=== PATIENT | female | born 1930 | race African-American/Black ===

== ENCOUNTER 2017-06-29 03:06 | Inpatient (IN) | payer OTHER, MEDICAID ==
[2017-06-29] VITALS (47 sets, daily range): BP systolic 93–165; BP diastolic 40–99
[~2017-06-29] VITALS: Ht 167.6 cm; Wt 106.6 kg
[~2017-06-29 03:06] MED LIST: CLON0.1T PO; ETOMIDATE 2MG/ML 10ML VIAL IV ONE; HYDR-4134 PO; LISI40TA4 PO; SUCCINYLCHOLINE CHLORIDE 200MG/10ML VIAL IV ONE
[2017-06-29] MEDS ORDERED: SODIUM CHLORIDE 0.9% 1,000 ML IV ONE (03:17)
[2017-06-29] MEDS ORDERED: SUCCINYLCHOLINE CHLORIDE 200MG/10ML VIAL IV ONE (03:30)
[2017-06-29] MEDS ORDERED: ETOMIDATE 2MG/ML 10ML VIAL IV ONE (03:30)
[2017-06-29] MEDS ORDERED: PROPOFOL 200MG/20ML VIAL IV ONE (03:30)
[2017-06-29] MEDS ORDERED: PROPOFOL 10MG/ML 100ML 100 ML IV ONE ×3 (03:30→09:18)
[2017-06-29] MEDS ORDERED: VANCOMYCIN 1 G PREMIX 200 ML IV ONE (03:30)
[2017-06-29] MEDS ORDERED: AZITHROMYCIN 500 MG in DEXT 5% WATER 250 ML IV ONE (03:30)
[2017-06-29] MEDS ORDERED: CEFTRIAXONE 1 G PREMIX 50 ML IV ONE (03:30)
[2017-06-29] MEDS ORDERED: ATROPINE SULFATE 1MG/10ML SYR ONE (03:40)
[2017-06-29 04:18] LABS: CLARITY URINE TURBID (CLEAR); COLOR URINE ORANGE (YELLOW); KETONES URINE NEGATIVE (NEGATIVE); LEUKOCYTE ESTERASE URINE 3+ (NEGATIVE); NITRITE URINE POSITIVE (NEGATIVE); OCCULT BLOOD URINE 3+ (NEGATIVE); PH URINE 5.5 (4.5-8.0); PROTEIN URINE 3+ (NEGATIVE); SPECIFIC GRAVITY URINE 1.017 (1.005-1.030)
[2017-06-29 04:46] LABS: BASOPHILS % 0.4 % (0.0-2.0); EOSINOPHILS % 0.5 % (0.0-5.0); HEMOGLOBIN. 12.5 g/dL (12.0-16.0); LYMPHOCYTES % 8.9 % (20.0-50.0); MEAN CORPUSCULAR HEMOGLOBIN 30.9 pg (28.0-32.0); MEAN CORPUSCULAR VOLUME 98.6 fL (81.0-99.0); MEAN PLATELET VOLUME 9.6 fl (7.4-10.4); NEUTROPHILS % 82.2 % (40.0-76.0); PLATELET 182 x1000/uL (130-400); RED BLOOD CELL COUNT 4.06 mill/uL (4.2-5.4); RED CELL DISTRIBUTION WIDTH 14.7 % (11.6-14.6)
[2017-06-29] MEDS ORDERED: SODIUM CHLORIDE 0.9% 1000ML BAG (SEPSIS BOLUS) IV NR (05:00)
[2017-06-29 05:03] LABS: CHLORIDE 94 mEq/L (98-107); ETHANOL BLOOD < 10 mg/dL; TROPONIN I 0.13 ng/mL (0.00-0.04)
[2017-06-29 05:15] LABS: INR 1.2; PROTHROMBIN TIME 12.5 sec (9.4-11.6)
[2017-06-29 05:16] LABS: BG BASE EXCESS 13.3 mmol/L (-2.0-2.0); BG CARBOXYHEMOGLOBIN 0.5 % (0.5-1.5); BG DEOXYHEMOGLOBIN 0.3 % (0.0-5.0); BG FRACTION INSPIRED OXYGEN 100; BG HCO3 ACT 39.1 mmol/L (22.0-26.0); BG METHEMOGLOBIN 0.3 % (0.0-1.5); BG OXYGEN SATURATION 99.7 % (92.0-98.5); BG OXYHEMOGLOBIN 98.9 % (94.0-97.0); BG PCO2 55.9 mmHg (35.0-45.0); BG PH 7.463 (7.350-7.450); BG PO2 440.9 mmHg (75.0-100.0); BG SAMPLE SITE RIGHT RADIAL; BG TIDAL VOLUME(mL) 550 mL; BG TOTAL HEMOGLOBIN 11.2 g/dL (12.0-18.0); BG VENT MODE VENT - A/C; BG VENT RATE 14 set
[2017-06-29] MEDS ORDERED: ASPIRIN 300MG SUPP PR NR (05:30)
[2017-06-29 06:12] LABS: *BARBITURATES SCREEN URINE NEGATIVE (NEGATIVE); *BENZODIAZEPINES SCREEN URINE NEGATIVE (NEGATIVE); *COCAINE SCREEN URINE NEGATIVE (NEGATIVE); CANNABINOID URINE SCREEN NEGATIVE (NEGATIVE); METHADONE URINE SCREEN NEGATIVE (NEGATIVE); OPIATES URINE SCREEN NEGATIVE (NEGATIVE); PHENCYCLIDINE URINE SCREEN NEGATIVE (NEGATIVE)
[2017-06-29 06:19] LABS: *AMPHETAMINES SCREEN URINE NEGATIVE (NEGATIVE)
[2017-06-29] MEDS ORDERED: ACETAMINOPHEN 650MG SUPP PR ONE (08:15)
[2017-06-29] MEDS ORDERED: CLONIDINE 0.1MG TABLET PO PRN (10:15)
[2017-06-29] MEDS ORDERED: ACETAMINOPHEN 325MG TABLET PO PRN (10:15)
[2017-06-29] MEDS ORDERED: IPRATROPIUM/ALBUTEROL 0.5-3(2.5)MG/3ML NEB HHN PRN (10:15)
[2017-06-29] MEDS ORDERED: DEXTROSE 50% WATER 50ML SYRINGE IV PRN (11:15)
[2017-06-29] MEDS: LISINOPRIL 40MG TABLET PO SCH (11:23)
[2017-06-29] MEDS: FUROSEMIDE 40MG/4ML VIAL IVP SCH ×2 (11:23→17:35)
[2017-06-29] MEDS: ENOXAPARIN 30MG/0.3ML SYR SUBCUT SCH ×2 (11:24→22:24)
[2017-06-29] MEDS: BLOOD SUGAR DIAGNOSTIC STRIP TEST SCH ×3 (11:30→21:00)
[2017-06-29] MEDS: LEVOFLOXACIN 750MG PREMIX 150 ML IV SCH (11:30)
[2017-06-29] MEDS: MORPHINE SULFATE 4 MG/ML CPJ (NOT FOR IM USE) IV PRN (11:43)
[2017-06-29] MEDS: INSULIN LISPRO 100 UNITS/ML SUBCUT SCH ×3 (12:00→21:00)
[2017-06-29 12:12] LABS: BG BASE EXCESS 13.2 mmol/L (-2.0-2.0); BG CARBOXYHEMOGLOBIN 0.4 % (0.5-1.5); BG DEOXYHEMOGLOBIN 0.9 % (0.0-5.0); BG HCO3 ACT 35.7 mmol/L (22.0-26.0); BG METHEMOGLOBIN 0.3 % (0.0-1.5); BG OXYGEN SATURATION 99.1 % (92.0-98.5); BG OXYHEMOGLOBIN 98.4 % (94.0-97.0); BG PCO2 36.9 mmHg (35.0-45.0); BG PH 7.603 (7.350-7.450); BG PO2 139.9 mmHg (75.0-100.0); BG SAMPLE SITE RIGHT BRACHIAL; BG TIDAL VOLUME(mL) 550 mL; BG TOTAL HEMOGLOBIN 11.7 g/dL (12.0-18.0); BG VENT MODE VENT - A/C; BG VENT RATE 14 set
[2017-06-29] MEDS: BUDESONIDE 0.5MG/2ML NEB HHN SCH ×2 (12:45→20:48)
[2017-06-29] MEDS: IPRATROPIUM/ALBUTEROL 0.5-3(2.5)MG/3ML NEB HHN SCH ×3 (12:45→20:50)
[2017-06-29] MEDS: HYDRALAZINE HCL 25MG TABLET PO SCH ×2 (13:00→17:36)
[2017-06-29] MEDS: PROPOFOL 10MG/ML 100ML 100 ML IV PRN ×2 (13:32→19:05)
[2017-06-29] MEDS ORDERED: METHYLPREDNISOLONE SOD SUCC 125 MG/2 ML VIAL IV SCH (14:00)
[2017-06-29] MEDS: METHYLPREDNISOLONE SOD SUCC 40 MG/ML VIAL IV SCH (22:24)
[2017-06-30] VITALS (93 sets, daily range): BP systolic 92–193; BP diastolic 40–125
[2017-06-30] MEDS: IPRATROPIUM/ALBUTEROL 0.5-3(2.5)MG/3ML NEB HHN SCH ×7 (00:32→23:50)
[2017-06-30 05:32] LABS: CHLORIDE 98 mEq/L (98-107)
[2017-06-30] MEDS: METHYLPREDNISOLONE SOD SUCC 40 MG/ML VIAL IV SCH ×3 (06:36→21:27)
[2017-06-30] MEDS: INSULIN LISPRO 100 UNITS/ML SUBCUT SCH ×4 (06:42→21:27)
[2017-06-30] MEDS: BLOOD SUGAR DIAGNOSTIC STRIP TEST SCH ×4 (06:42→21:27)
[2017-06-30] MEDS: BUDESONIDE 0.5MG/2ML NEB HHN SCH ×2 (07:56→20:21)
[2017-06-30 08:10] LABS: BG BASE EXCESS 12.8 mmol/L (-2.0-2.0); BG CARBOXYHEMOGLOBIN 0.1 % (0.5-1.5); BG DEOXYHEMOGLOBIN 1.6 % (0.0-5.0); BG FRACTION INSPIRED OXYGEN 45; BG HCO3 ACT 37.7 mmol/L (22.0-26.0); BG METHEMOGLOBIN 0.2 % (0.0-1.5); BG OXYGEN SATURATION 98.4 % (92.0-98.5); BG OXYHEMOGLOBIN 98.1 % (94.0-97.0); BG PCO2 49.8 mmHg (35.0-45.0); BG PH 7.497 (7.350-7.450); BG PO2 120.9 mmHg (75.0-100.0); BG SAMPLE SITE RIGHT RADIAL; BG TIDAL VOLUME(mL) 550 mL; BG TOTAL HEMOGLOBIN 11.7 g/dL (12.0-18.0); BG VENT MODE VENT - A/C; BG VENT RATE 10 set
[2017-06-30 08:39] LABS: HEMATOCRIT. 34.2 % (36.0-48.0); HEMOGLOBIN. 11.1 g/dL (12.0-16.0); MEAN CORPUSCULAR HEMOGLOBIN 30.7 pg (28.0-32.0); MEAN CORPUSCULAR VOLUME 94.2 fL (81.0-99.0); MEAN PLATELET VOLUME 9.6 fl (7.4-10.4); PLATELET 199 x1000/uL (130-400); RED BLOOD CELL COUNT 3.63 mill/uL (4.2-5.4); RED CELL DISTRIBUTION WIDTH 14.3 % (11.6-14.6)
[2017-06-30] MEDS: HYDRALAZINE HCL 100MG TABLET PO SCH ×3 (08:43→21:27)
[2017-06-30] MEDS: FUROSEMIDE 40MG/4ML VIAL IVP SCH ×2 (09:09→18:29)
[2017-06-30] MEDS: ENOXAPARIN 30MG/0.3ML SYR SUBCUT SCH ×2 (09:09→21:09)
[2017-06-30] MEDS: LISINOPRIL 40MG TABLET PO SCH (09:10)
[2017-06-30] MEDS: PROPOFOL 10MG/ML 100ML 100 ML IV PRN ×3 (09:11→20:24)
[2017-06-30 09:33] LABS: PLATELET ESTIMATE NORMAL
[2017-06-30] MEDS ORDERED: LIDOCAINE HCL 1% 20ML VIAL (Pyxis) INJ ONE (09:59)
[2017-06-30] MEDS: LEVOFLOXACIN 750MG PREMIX 150 ML IV SCH (11:29)
[2017-06-30] MEDS ORDERED: BISACODYL 10MG SUPP PR PRN (11:30)
[2017-06-30] MEDS: DOCUSATE SODIUM SUGAR FREE 100MG/10ML UDC NG SCH (11:49)
[2017-06-30] MEDS: PANTOPRAZOLE SODIUM 40 MG/VIAL IV SCH (11:49)
[2017-07-01] VITALS (49 sets, daily range): BP systolic 102–163; BP diastolic 44–95
[2017-07-01] MEDS: PROPOFOL 10MG/ML 100ML 100 ML IV PRN (01:39)
[2017-07-01] MEDS: IPRATROPIUM/ALBUTEROL 0.5-3(2.5)MG/3ML NEB HHN SCH ×5 (04:07→20:08)
[2017-07-01] MEDS: HYDRALAZINE HCL 100MG TABLET PO SCH ×2 (05:43→13:23)
[2017-07-01] MEDS: METHYLPREDNISOLONE SOD SUCC 40 MG/ML VIAL IV SCH ×2 (05:43→13:22)
[2017-07-01] MEDS: INSULIN LISPRO 100 UNITS/ML SUBCUT SCH ×4 (05:44→21:00)
[2017-07-01] MEDS: BLOOD SUGAR DIAGNOSTIC STRIP TEST SCH ×4 (05:44→21:00)
[2017-07-01 05:54] LABS: HEMATOCRIT. 32.7 % (36.0-48.0); HEMOGLOBIN. 10.7 g/dL (12.0-16.0); MEAN CORPUSCULAR HEMOGLOBIN 30.8 pg (28.0-32.0); MEAN CORPUSCULAR VOLUME 94.1 fL (81.0-99.0); MEAN PLATELET VOLUME 9.8 fl (7.4-10.4); PLATELET 201 x1000/uL (130-400); RED BLOOD CELL COUNT 3.47 mill/uL (4.2-5.4); RED CELL DISTRIBUTION WIDTH 14.1 % (11.6-14.6)
[2017-07-01] MEDS: BUDESONIDE 0.5MG/2ML NEB HHN SCH ×2 (07:55→20:08)
[2017-07-01 08:09] LABS: BG BASE EXCESS 11.8 mmol/L (-2.0-2.0); BG CARBOXYHEMOGLOBIN 0.3 % (0.5-1.5); BG DEOXYHEMOGLOBIN 1.5 % (0.0-5.0); BG FRACTION INSPIRED OXYGEN 40; BG HCO3 ACT 37.6 mmol/L (22.0-26.0); BG METHEMOGLOBIN 0.1 % (0.0-1.5); BG OXYGEN SATURATION 98.5 % (92.0-98.5); BG OXYHEMOGLOBIN 98.1 % (94.0-97.0); BG PCO2 55.2 mmHg (35.0-45.0); BG PH 7.451 (7.350-7.450); BG PO2 124.4 mmHg (75.0-100.0); BG SAMPLE SITE RIGHT BRACHIAL; BG TIDAL VOLUME(mL) 550 mL; BG TOTAL HEMOGLOBIN 11.4 g/dL (12.0-18.0); BG VENT MODE VENT - A/C; BG VENT RATE 10 set
[2017-07-01] MEDS: LISINOPRIL 40MG TABLET PO SCH (08:43)
[2017-07-01] MEDS: DOCUSATE SODIUM SUGAR FREE 100MG/10ML UDC NG SCH (08:43)
[2017-07-01] MEDS: ENOXAPARIN 30MG/0.3ML SYR SUBCUT SCH ×2 (08:44→21:00)
[2017-07-01] MEDS: PANTOPRAZOLE SODIUM 40 MG/VIAL IV SCH (08:44)
[2017-07-01] MEDS: FUROSEMIDE 40MG/4ML VIAL IVP SCH (08:44)
[2017-07-01 09:57] LABS: NUCLEATED RED BLOOD CELLS 1 /100 WBC
[2017-07-01 09:58] LABS: PLATELET ESTIMATE NORMAL
[2017-07-01] MEDS ORDERED: POTASSIUM CHLORIDE INJ 40 MEQ in SODIUM CHLORIDE 0.9% 250 ML IV NR (10:00)
[2017-07-01] MEDS: LEVOFLOXACIN 750MG PREMIX 150 ML IV SCH (11:50)
[2017-07-01] MEDS: MAGNESIUM/ALUMINUM HYDROXIDE/SIMETHICONE 30ML UDC PO PRN ×2 (13:39→19:48)
[2017-07-01] MEDS ORDERED: NA PHOS,M-B/NA PHOS,DI-BA ENEMA 118ML PR PRN (14:45)
[2017-07-01] MEDS ORDERED: MAGNESIUM 2 G PREMIX 50 ML IV NR (15:00)
[2017-07-01] MEDS: MORPHINE SULFATE 4 MG/ML CPJ (NOT FOR IM USE) IV PRN (16:26)
[2017-07-02] MEDS ORDERED: FUROSEMIDE 40MG/4ML VIAL IVP SCH (09:00)
[2017-07-03] MEDS ORDERED: LEVOFLOXACIN 750MG PREMIX 150 ML IV SCH (11:00)
== END 2017-07-01 21:50 | disposition short-term general hospital (02) | DRG 871 ==
LOC: ER 03:16 → EDBEDREQSVC 03:28 → EDBEDREQ 03:46 → MICUNO 04:21 → EDBEDREQ 04:26
PROVIDERS: ADMIT Internal Medicine Nephrology; ATTEND Internal Medicine Nephrology
PROC: 0BH17EZ Insertion of Endotracheal Airway into Trachea, Via Natural or Artificial Opening (ICD-10-PCS; principal; 2017-06-29)
PROC: 5A1945Z Respiratory Ventilation, 24-96 Consecutive Hours (ICD-10-PCS; 2017-06-29)
PROC: 02HV33Z Insertion of Infusion Device into Superior Vena Cava, Percutaneous Approach (ICD-10-PCS; 2017-06-30)
PROC: B548ZZA Ultrasonography of Superior Vena Cava, Guidance (ICD-10-PCS; 2017-06-30)
DX: A41.9 Sepsis, unspecified organism (principal); J96.00 Acute respiratory failure, unspecified whether with hypoxia or hypercapnia; J69.0 Pneumonitis due to inhalation of food and vomit; G92 Toxic encephalopathy; I50.21 Acute systolic (congestive) heart failure; E44.0 Moderate protein-calorie malnutrition; R16.0 Hepatomegaly, not elsewhere classified; J44.1 Chronic obstructive pulmonary disease with (acute) exacerbation; N39.0 Urinary tract infection, site not specified; I42.9 Cardiomyopathy, unspecified; J98.11 Atelectasis; K80.20 Calculus of gallbladder without cholecystitis without obstruction; I11.0 Hypertensive heart disease with heart failure; B96.89 Other specified bacterial agents as the cause of diseases classified elsewhere; E78.5 Hyperlipidemia, unspecified; Z88.6 Allergy status to analgesic agent; Z68.37 Body mass index [BMI] 37.0-37.9, adult
CPT/HCPCS: 31500; 36415; 36569; 36600; 70450; 71045; 74176; 76937; 80048; 80053; 80305; 81001; 82375; 82805; 82962; 83036; 83605; 83690; 83735; 83880; 84478; 84484; 85025; 85610; 87040; 87077; 87086; 87186; 87804; 93005; 93306; 93970; 94002; 94640; 96374; 99291; A6261; C1725; C9113; G0482; J0330; J0456; J0461; J0696; J1650; J1815; J1940; J1956; J2270; J2704; J2920; J2930; J3370; J3475; J3480; J3490; J7030; J7040; J7050; J7060; J7620; J7626; A4315

== ENCOUNTER 2018-06-22 01:31 | Inpatient (IN) | payer OTHER, MEDICAID ==
[2018-06-22] VITALS (7 sets, daily range): BP systolic 105–167; BP diastolic 45–69
[~2018-06-22] VITALS: Ht 162.6 cm; Wt 98.0 kg
[~2018-06-22 01:31] MED LIST changes: -ETOMIDATE 2MG/ML 10ML VIAL IV ONE; -SUCCINYLCHOLINE CHLORIDE 200MG/10ML VIAL IV ONE
[2018-06-22] MEDS ORDERED: FUROSEMIDE 40MG/4ML VIAL IV ONE (03:15)
[2018-06-22] MEDS ORDERED: NITROGLYCERIN OINT 1GM/INCH UDPKT TD ONE (03:15)
[2018-06-22 04:29] LABS: HEMOGLOBIN. 11.9 g/dL (12.0-16.0); MEAN CORPUSCULAR HEMOGLOBIN 31.9 pg (28.0-32.0); MEAN CORPUSCULAR VOLUME 99.1 fL (81.0-99.0); RED BLOOD CELL COUNT 3.74 mill/uL (4.2-5.4); RED CELL DISTRIBUTION WIDTH 13.3 % (11.6-14.6)
[2018-06-22 04:32] LABS: BG BASE EXCESS 7.4 mmol/L (-2.0-2.0); BG CARBOXYHEMOGLOBIN 1.8 % (0.5-1.5); BG DEOXYHEMOGLOBIN 6.1 % (0.0-5.0); BG FRACTION INSPIRED OXYGEN 36; BG HCO3 ACT 34.5 mmol/L (22.0-26.0); BG METHEMOGLOBIN 0.3 % (0.0-1.5); BG OXYGEN SATURATION 93.8 % (92.0-98.5); BG OXYHEMOGLOBIN 91.8 % (94.0-97.0); BG PCO2 60.8 mmHg (35.0-45.0); BG PH 7.372 (7.350-7.450); BG PO2 70.7 mmHg (75.0-100.0); BG SAMPLE SITE RIGHT RADIAL; BG TOTAL HEMOGLOBIN 12.4 g/dL (12.0-18.0); BG VENT MODE NASAL CANNULA
[2018-06-22 04:44] LABS: CHLORIDE 98 mEq/L (98-107)
[2018-06-22 07:25] LABS: PLATELET ESTIMATE NORMAL
[2018-06-22 07:26] LABS: MEAN PLATELET VOLUME 9.6 fl (7.4-10.4); PLATELET 182 x1000/uL (130-400)
[2018-06-22] MEDS ORDERED: HYDROCODONE/ACETAMINOPHEN 10/325MG TABLET PO PRN (13:00)
[2018-06-22] MEDS ORDERED: CLONIDINE 0.1MG TABLET PO PRN (13:00)
[2018-06-22] MEDS ORDERED: HYDRALAZINE 20MG/ML VIAL IV PRN (13:00)
[2018-06-22] MEDS ORDERED: IPRATROPIUM/ALBUTEROL 0.5-3(2.5)MG/3ML NEB INH PRN (13:00)
[2018-06-22] MEDS ORDERED: ONDANSETRON HCL 4MG/2ML INJ IV PRN (13:00)
[2018-06-22] MEDS ORDERED: ACETAMINOPHEN 325MG TABLET PO PRN (13:00)
[2018-06-22] MEDS ORDERED: GUAIFENESIN 200MG/10ML SUGAR FREE UDC PO PRN (13:00)
[2018-06-22] MEDS ORDERED: DIPHENHYDRAMINE 50MG/ML VIAL IV PRN (13:00)
[2018-06-22] MEDS ORDERED: HYDROMORPHONE HCL/PF 2MG/ML CPJ IV PRN (13:00)
[2018-06-22] MEDS: SODIUM CHLORIDE 0.9% INJ 3ML FLUSH IVF SCH ×2 (14:49→22:00)
[2018-06-22] MEDS: ENOXAPARIN 40MG/0.4ML SYR SUBCUT SCH (14:54)
[2018-06-22] MEDS: LEVOFLOXACIN 500MG PREMIX 100 ML IV SCH (15:31)
[2018-06-22] MEDS: IPRATROPIUM/ALBUTEROL 0.5-3(2.5)MG/3ML NEB HHN SCH ×2 (17:10→22:14)
[2018-06-22] MEDS: FUROSEMIDE 40MG/4ML VIAL IV SCH (17:35)
[2018-06-22 18:01] LABS: CREATINE KINASE MB FRACTION 1.1 ng/mL (0.5-3.6)
[2018-06-22 18:06] LABS: T4 FREE 1.19 ng/dL (0.76-1.46)
[2018-06-22] MEDS: LORAZEPAM 2MG/ML CPJ IV PRN (18:06)
[2018-06-23] VITALS (12 sets, daily range): BP systolic 104–147; BP diastolic 41–95
[2018-06-23] MEDS: IPRATROPIUM/ALBUTEROL 0.5-3(2.5)MG/3ML NEB HHN SCH ×5 (01:55→20:20)
[2018-06-23] MEDS: FUROSEMIDE 40MG/4ML VIAL IV SCH ×2 (06:50→18:37)
[2018-06-23] MEDS: SODIUM CHLORIDE 0.9% INJ 3ML FLUSH IVF SCH ×3 (06:50→21:25)
[2018-06-23 08:21] LABS: BASOPHILS % 0.7 % (0.0-2.0); EOSINOPHILS % 2.4 % (0.0-5.0); HEMATOCRIT. 30.5 % (36.0-48.0); HEMOGLOBIN. 9.8 g/dL (12.0-16.0); LYMPHOCYTES % 14.4 % (20.0-50.0); MEAN CORPUSCULAR HEMOGLOBIN 31.7 pg (28.0-32.0); MEAN CORPUSCULAR VOLUME 98.8 fL (81.0-99.0); MEAN PLATELET VOLUME 9.5 fl (7.4-10.4); MONOCYTES % 15.6 % (2.0-8.0); NEUTROPHILS % 66.9 % (40.0-76.0); PLATELET 176 x1000/uL (130-400); RED BLOOD CELL COUNT 3.08 mill/uL (4.2-5.4); RED CELL DISTRIBUTION WIDTH 13.5 % (11.6-14.6)
[2018-06-23 08:26] LABS: CHLORIDE 97 mEq/L (98-107)
[2018-06-23 08:39] LABS: LDL CHOLESTEROL 57 mg/dL (5-100)
[2018-06-23 08:40] LABS: CREATINE KINASE 24 IU/L (26-192)
[2018-06-23 08:41] LABS: CREATINE KINASE MB FRACTION < 1.0 ng/mL (0.5-3.6); HDL CHOLESTEROL 55 mg/dL (40-59); T4 FREE 1.27 ng/dL (0.76-1.46)
[2018-06-23] MEDS ORDERED: FUROSEMIDE 40MG/4ML VIAL IV SCH (09:00)
[2018-06-23] MEDS: MAGNESIUM/ALUMINUM HYDROXIDE/SIMETHICONE 30ML UDC PO PRN ×2 (13:32→21:25)
[2018-06-23] MEDS: ENOXAPARIN 40MG/0.4ML SYR SUBCUT SCH (13:33)
[2018-06-23] MEDS: LOSARTAN POTASSIUM 25 MG TABLET PO SCH (15:08)
[2018-06-23] MEDS: DILTIAZEM HCL 30MG TABLET PO SCH ×2 (18:36→23:38)
[2018-06-23] MEDS: DOCUSATE SODIUM 100MG CAPSULE PO PRN ×2 (18:41→21:25)
[2018-06-24] VITALS (27 sets, daily range): BP systolic 79–150; BP diastolic 45–90
[2018-06-24] MEDS ORDERED: DILTIAZEM HCL 125 MG in DEXT 5% WATER 100 ML IV PRN ×2
[2018-06-24] MEDS: IPRATROPIUM/ALBUTEROL 0.5-3(2.5)MG/3ML NEB HHN SCH ×3 (01:45→12:24)
[2018-06-24 06:23] LABS: HEMATOCRIT. 33.7 % (36.0-48.0); HEMOGLOBIN. 10.9 g/dL (12.0-16.0); MEAN CORPUSCULAR HEMOGLOBIN 31.8 pg (28.0-32.0); MEAN CORPUSCULAR VOLUME 98.5 fL (81.0-99.0); MEAN PLATELET VOLUME 9.5 fl (7.4-10.4); PLATELET 206 x1000/uL (130-400); RED BLOOD CELL COUNT 3.43 mill/uL (4.2-5.4); RED CELL DISTRIBUTION WIDTH 13.5 % (11.6-14.6)
[2018-06-24] MEDS: SODIUM CHLORIDE 0.9% INJ 3ML FLUSH IVF SCH ×3 (06:34→22:00)
[2018-06-24] MEDS: FUROSEMIDE 40MG/4ML VIAL IV SCH ×2 (06:38→17:15)
[2018-06-24] MEDS: DILTIAZEM HCL 30MG TABLET PO SCH ×2 (06:39→12:59)
[2018-06-24 07:06] LABS: CHLORIDE 95 mEq/L (98-107)
[2018-06-24] MEDS: LOSARTAN POTASSIUM 25 MG TABLET PO SCH (08:02)
[2018-06-24 11:35] LABS: PLATELET ESTIMATE NORMAL
[2018-06-24] MEDS: ENOXAPARIN 40MG/0.4ML SYR SUBCUT SCH (13:00)
[2018-06-24] MEDS ORDERED: ENOXAPARIN 40MG/0.4ML SYR SUBCUT SCH (13:30)
[2018-06-24] MEDS ORDERED: AMIODARONE HCL 150 MG in DEXT 5% WATER 100 ML IV SCH (14:00)
[2018-06-24] MEDS: ASPIRIN 81MG EC TABLET PO SCH (14:06)
[2018-06-24] MEDS: LEVOFLOXACIN 500MG PREMIX 100 ML IV SCH (15:00)
[2018-06-24] MEDS: DILTIAZEM HCL 60MG TABLET PO SCH ×2 (18:15→23:29)
[2018-06-24] MEDS: IPRATROPIUM BROMIDE (0.02%) 0.5MG/2.5ML NEB HHN SCH (21:29)
[2018-06-24] MEDS: ENOXAPARIN 80MG/0.8ML SYR SUBCUT SCH (23:30)
[2018-06-25] VITALS (17 sets, daily range): BP systolic 106–165; BP diastolic 51–96
[2018-06-25] MEDS: SODIUM CHLORIDE 0.9% INJ 3ML FLUSH IVF SCH ×2 (06:33→14:00)
[2018-06-25] MEDS: DILTIAZEM HCL 60MG TABLET PO SCH ×3 (06:34→17:36)
[2018-06-25] MEDS: FUROSEMIDE 40MG/4ML VIAL IV SCH ×2 (06:42→17:10)
[2018-06-25 08:34] LABS: BASOPHILS % 0.3 % (0.0-2.0); EOSINOPHILS % 1.3 % (0.0-5.0); HEMATOCRIT. 37.2 % (36.0-48.0); HEMOGLOBIN. 11.9 g/dL (12.0-16.0); LYMPHOCYTES % 13.2 % (20.0-50.0); MEAN CORPUSCULAR HEMOGLOBIN 31.6 pg (28.0-32.0); MEAN CORPUSCULAR VOLUME 98.8 fL (81.0-99.0); MEAN PLATELET VOLUME 10.3 fl (7.4-10.4); MONOCYTES % 13.9 % (2.0-8.0); NEUTROPHILS % 71.3 % (40.0-76.0); PLATELET 202 x1000/uL (130-400); RED BLOOD CELL COUNT 3.76 mill/uL (4.2-5.4); RED CELL DISTRIBUTION WIDTH 13.4 % (11.6-14.6)
[2018-06-25 08:52] LABS: CHLORIDE 93 mEq/L (98-107)
[2018-06-25 09:01] LABS: CREATINE KINASE 34 IU/L (26-192)
[2018-06-25 09:03] LABS: CREATINE KINASE MB FRACTION < 1.0 ng/mL (0.5-3.6)
[2018-06-25] MEDS: ASPIRIN 81MG EC TABLET PO SCH (09:10)
[2018-06-25] MEDS: ENOXAPARIN 80MG/0.8ML SYR SUBCUT SCH ×2 (09:10→21:08)
[2018-06-25] MEDS: LOSARTAN POTASSIUM 25 MG TABLET PO SCH (09:10)
[2018-06-25] MEDS ORDERED: LEVOFLOXACIN 500MG PREMIX 100 ML IV SCH ×2 (15:00→18:30)
[2018-06-25] MEDS: MAGNESIUM/ALUMINUM HYDROXIDE/SIMETHICONE 30ML UDC PO PRN ×2 (15:28→21:29)
[2018-06-25] MEDS: DOCUSATE SODIUM 100MG CAPSULE PO PRN (15:31)
[2018-06-25] MEDS: IPRATROPIUM BROMIDE (0.02%) 0.5MG/2.5ML NEB HHN SCH (15:59)
[2018-06-25] MEDS ORDERED: LOSARTAN POTASSIUM 25 MG TABLET PO SCH (21:00)
[2018-06-25] MEDS: LORAZEPAM 2MG/ML CPJ IV PRN (21:08)
== END 2018-06-25 21:50 | disposition short-term general hospital (02) | DRG 189 ==
LOC: ER 01:31 → 5EST 05:24 → EDBEDREQ 05:27 → EDBEDREQTM 05:27 → EDBEDREQSVC 05:27 → CANRESERV 10:58 → ENRESERV 10:58
PROVIDERS: ADMIT Internal Medicine; ATTEND Internal Medicine
PROC: 5A09457 Assistance with Respiratory Ventilation, 24-96 Consecutive Hours, Continuous Positive Airway Pressure (ICD-10-PCS; principal; 2018-06-22)
PROC: 5A09357 Assistance with Respiratory Ventilation, Less than 24 Consecutive Hours, Continuous Positive Airway Pressure (ICD-10-PCS; 2018-06-24)
PROC: 5A09357 Assistance with Respiratory Ventilation, Less than 24 Consecutive Hours, Continuous Positive Airway Pressure (ICD-10-PCS; 2018-06-25)
DX: J96.01 Acute respiratory failure with hypoxia (principal); I50.23 Acute on chronic systolic (congestive) heart failure; E87.2 Acidosis; I48.1 Persistent atrial fibrillation; I42.9 Cardiomyopathy, unspecified; J96.02 Acute respiratory failure with hypercapnia; I11.0 Hypertensive heart disease with heart failure; D72.829 Elevated white blood cell count, unspecified; R73.9 Hyperglycemia, unspecified; I34.0 Nonrheumatic mitral (valve) insufficiency; R74.8 Abnormal levels of other serum enzymes; E78.5 Hyperlipidemia, unspecified; G47.33 Obstructive sleep apnea (adult) (pediatric); I27.20 Pulmonary hypertension, unspecified; I89.0 Lymphedema, not elsewhere classified; J44.9 Chronic obstructive pulmonary disease, unspecified; Z85.72 Personal history of non-Hodgkin lymphomas; Z87.891 Personal history of nicotine dependence; Z90.710 Acquired absence of both cervix and uterus; Z90.81 Acquired absence of spleen; Z99.81 Dependence on supplemental oxygen; Z79.82 Long term (current) use of aspirin; Z79.899 Other long term (current) drug therapy; Z88.6 Allergy status to analgesic agent
CPT/HCPCS: 36415; 36600; 71045; 80048; 80061; 82375; 82550; 82553; 82805; 83605; 83735; 83880; 84439; 84443; 84481; 84484; 85379; 87070; 92610; 93005; 93306; 93970; 94640; 94660; 96374; 99291; J0282; J1650; J1940; J1956; J2060; J3490; J7050; J7060; J7620

== ENCOUNTER 2018-07-03 15:17 | Emergency (ER) | payer OTHER, MEDICAID ==
[~2018-07-03] VITALS: Ht 177.8 cm; Wt 111.0 kg
[2018-07-03 17:10] LABS: CHLORIDE 94 mEq/L (98-107)
[2018-07-03 17:14] LABS: BASOPHILS % 1.4 % (0.0-2.0); HEMATOCRIT. 36.5 % (36.0-48.0); HEMOGLOBIN. 11.7 g/dL (12.0-16.0); LYMPHOCYTES % 23.6 % (20.0-50.0); MEAN CORPUSCULAR HEMOGLOBIN 31.7 pg (28.0-32.0); MEAN CORPUSCULAR VOLUME 99.1 fL (81.0-99.0); MEAN PLATELET VOLUME 9.5 fl (7.4-10.4); MONOCYTES % 12.1 % (2.0-8.0); NEUTROPHILS % 60.9 % (40.0-76.0); PLATELET 350 x1000/uL (130-400); RED BLOOD CELL COUNT 3.68 mill/uL (4.2-5.4); RED CELL DISTRIBUTION WIDTH 14.1 % (11.6-14.6)
[2018-07-03] MEDS ORDERED: SODIUM CHLORIDE 0.9% 500 ML IV ONE (18:00)
[2018-07-03 18:01] LABS: CLARITY URINE CLOUDY (CLEAR); COLOR URINE DARK YELLOW (YELLOW); KETONES URINE NEGATIVE (NEGATIVE); LEUKOCYTE ESTERASE URINE 3+ (NEGATIVE); NITRITE URINE NEGATIVE (NEGATIVE); OCCULT BLOOD URINE 1+ (NEGATIVE); PH URINE 8.5 (4.5-8.0); PROTEIN URINE 1+ (NEGATIVE); SPECIFIC GRAVITY URINE 1.011 (1.005-1.030); UROBILINOGEN URINE 0.2 E.U./dL (0.2-1.0)
[2018-07-03 18:11] LABS: INR 1.2; PARTIAL THROMBOPLASTIN TIME 20.4 sec (23.4-31.0); PROTHROMBIN TIME 11.7 sec (9.1-11.1)
[2018-07-03 18:12] LABS: *AMPHETAMINES SCREEN URINE NEGATIVE (NEGATIVE); *BARBITURATES SCREEN URINE NEGATIVE (NEGATIVE); *BENZODIAZEPINES SCREEN URINE NEGATIVE (NEGATIVE); *COCAINE SCREEN URINE NEGATIVE (NEGATIVE); METHADONE URINE SCREEN NEGATIVE (NEGATIVE)
[2018-07-03 18:14] LABS: CANNABINOID URINE SCREEN NEGATIVE (NEGATIVE); OPIATES URINE SCREEN NEGATIVE (NEGATIVE); PHENCYCLIDINE URINE SCREEN NEGATIVE (NEGATIVE)
[2018-07-03 18:26] VITALS: BP 145/78
== END 2018-07-03 19:45 ==
LOC: ER 15:17
DX: I48.91 Unspecified atrial fibrillation (principal); R00.2 Palpitations; R06.89 Other abnormalities of breathing; E86.0 Dehydration; E87.8 Other disorders of electrolyte and fluid balance, not elsewhere classified; E86.9 Volume depletion, unspecified; I11.0 Hypertensive heart disease with heart failure; I50.9 Heart failure, unspecified; I89.0 Lymphedema, not elsewhere classified; N17.0 Acute kidney failure with tubular necrosis; R31.9 Hematuria, unspecified; R80.9 Proteinuria, unspecified; N39.0 Urinary tract infection, site not specified; R82.71 Bacteriuria; J44.9 Chronic obstructive pulmonary disease, unspecified; Z98.890 Other specified postprocedural states
CPT/HCPCS: 36415; 71045; 80053; 80305; 81003; 83036; 83880; 84484; 85025; 85610; 85651; 85730; 86141; 87077; 87086; 87186; 93005; 96360; 99284; J7040

== ENCOUNTER 2018-07-25 03:13 | Emergency (ER) | payer OTHER, MEDICAID ==
[~2018-07-25] VITALS: Ht 162.6 cm; Wt 94.0 kg
[2018-07-25] MEDS ORDERED: METO-385 PO (03:24)
[2018-07-25] MEDS ORDERED: FURO-151 PO (03:24)
[2018-07-25 05:08] LABS: CHLORIDE 94 mEq/L (98-107)
[2018-07-25 05:09] LABS: BASOPHILS % 1.2 % (0.0-2.0); HEMATOCRIT. 35.4 % (36.0-48.0); HEMOGLOBIN. 11.3 g/dL (12.0-16.0); LYMPHOCYTES % 11.6 % (20.0-50.0); MEAN CORPUSCULAR HEMOGLOBIN 31.7 pg (28.0-32.0); MEAN CORPUSCULAR VOLUME 99.1 fL (81.0-99.0); MEAN PLATELET VOLUME 8.4 fl (7.4-10.4); MONOCYTES % 14.1 % (2.0-8.0); NEUTROPHILS % 72.1 % (40.0-76.0); PLATELET 228 x1000/uL (130-400); RED BLOOD CELL COUNT 3.57 mill/uL (4.2-5.4); RED CELL DISTRIBUTION WIDTH 14.4 % (11.6-14.6)
[2018-07-25 06:18] LABS: CLARITY URINE TURBID (CLEAR); COLOR URINE YELLOW (YELLOW); KETONES URINE NEGATIVE (NEGATIVE); LEUKOCYTE ESTERASE URINE NEGATIVE (NEGATIVE); NITRITE URINE NEGATIVE (NEGATIVE); OCCULT BLOOD URINE NEGATIVE (NEGATIVE); PH URINE >=9.0 (4.5-8.0); PROTEIN URINE 2+ (NEGATIVE); SPECIFIC GRAVITY URINE 1.017 (1.005-1.030); UROBILINOGEN URINE 0.2 E.U./dL (0.2-1.0)
[2018-07-25] MEDS ORDERED: ACETAMINOPHEN 325MG TABLET PO ONE (07:45)
[2018-07-25 08:00] VITALS: BP 170/86
[2018-07-25] MEDS ORDERED: FUROSEMIDE 40MG/4ML VIAL IVP ONE (08:00)
[2018-07-25] MEDS ORDERED: IPRATROPIUM BROMIDE (0.02%) 0.5MG/2.5ML NEB HHN STA (08:05)
[2018-07-25] MEDS ORDERED: METHYLPREDNISOLONE SOD SUCC 125 MG/2 ML VIAL IV STA (08:05)
[2018-07-25] MEDS ORDERED: ALBUTEROL (0.083%) 2.5MG/3ML NEB HHN SCH (08:30)
== END 2018-07-25 10:30 | disposition short-term general hospital (02) ==
LOC: ER 03:13
DX: I11.0 Hypertensive heart disease with heart failure (principal); I50.9 Heart failure, unspecified; I48.91 Unspecified atrial fibrillation; J44.9 Chronic obstructive pulmonary disease, unspecified; Z88.6 Allergy status to analgesic agent; Z90.710 Acquired absence of both cervix and uterus
CPT/HCPCS: 36415; 71045; 80053; 81003; 83880; 84484; 85025; 93005; 94640; 96374; 96375; 99285; J1940; J2930; J7611

== ENCOUNTER 2018-07-26 22:02 | Emergency (ER) | payer OTHER, MEDICAID ==
[~2018-07-26] VITALS: Ht 167.6 cm; Wt 91.0 kg
[~2018-07-26 22:02] MED LIST changes: +FURO-151 PO; +METO-385 PO
[2018-07-27] MEDS ORDERED: FUROSEMIDE 40MG/4ML VIAL IV ONE
[2018-07-27] MEDS ORDERED: NITROGLYCERIN OINT 1GM/INCH UDPKT TD ONE
[2018-07-27 00:37] LABS: HEMATOCRIT. 38.8 % (36.0-48.0); HEMOGLOBIN. 12.7 g/dL (12.0-16.0); MEAN CORPUSCULAR HEMOGLOBIN 31.7 pg (28.0-32.0); MEAN CORPUSCULAR VOLUME 96.9 fL (81.0-99.0); RED BLOOD CELL COUNT 4.01 mill/uL (4.2-5.4); RED CELL DISTRIBUTION WIDTH 14.6 % (11.6-14.6)
[2018-07-27 00:40] LABS: CHLORIDE 92 mEq/L (98-107)
[2018-07-27 00:43] LABS: INR 1.2; PROTHROMBIN TIME 11.9 sec (9.1-11.1)
[2018-07-27 01:53] LABS: PLATELET 212 x1000/uL (130-400)
[2018-07-27 01:56] LABS: PLATELET ESTIMATE NORMAL
[2018-07-27 04:43] VITALS: BP 159/79
== END 2018-07-27 05:00 | disposition short-term general hospital (02) ==
LOC: ER 22:09
DX: I11.0 Hypertensive heart disease with heart failure (principal); I50.9 Heart failure, unspecified; J44.9 Chronic obstructive pulmonary disease, unspecified; D72.829 Elevated white blood cell count, unspecified; Z99.81 Dependence on supplemental oxygen; Z88.6 Allergy status to analgesic agent; Z90.710 Acquired absence of both cervix and uterus
CPT/HCPCS: 36415; 51702; 71045; 83880; 84484; 93005; 99285

== ENCOUNTER 2018-10-18 18:25 | Emergency (ER) | payer OTHER, MEDICAID ==
[~2018-10-18] VITALS: Ht 167.6 cm; Wt 85.0 kg
[2018-10-18] MEDS ORDERED: ONDANSETRON HCL 4MG/2ML INJ IV STA (18:50)
[2018-10-18] MEDS ORDERED: SODIUM CHLORIDE 0.9% 1000ML BAG (SEPSIS BOLUS) IV ONE (19:00)
[2018-10-18] MEDS ORDERED: DILTIAZEM HCL 125 MG in DEXT 5% WATER 100 ML IV ONE ×2 (20:00→20:30)
[2018-10-18] MEDS ORDERED: DILTIAZEM HCL 5MG/ML 5ML VIAL IV ONE (20:00)
[2018-10-18 20:13] LABS: HEMATOCRIT. 39.5 % (36.0-48.0); MEAN CORPUSCULAR HEMOGLOBIN 32.2 pg (28.0-32.0); MEAN CORPUSCULAR VOLUME 97.9 fL (81.0-99.0); MEAN PLATELET VOLUME 10.2 fl (7.4-10.4); PLATELET 178 x1000/uL (130-400); RED BLOOD CELL COUNT 4.03 mill/uL (4.2-5.4); RED CELL DISTRIBUTION WIDTH 15.1 % (11.6-14.6)
[2018-10-18 20:19] LABS: INR 1.2; PROTHROMBIN TIME 12.7 sec (9.6-11.0)
[2018-10-18 20:22] LABS: CHLORIDE 94 mEq/L (98-107)
[2018-10-18 20:27] LABS: ETHANOL BLOOD < 10 mg/dL
[2018-10-18 20:39] LABS: PLATELET ESTIMATE NORMAL
[2018-10-18 21:48] LABS: BG BASE EXCESS 6.4 mmol/L (-2.0-2.0); BG CARBOXYHEMOGLOBIN 0.9 % (0.5-1.5); BG DEOXYHEMOGLOBIN 6.6 % (0.0-5.0); BG FRACTION INSPIRED OXYGEN 32; BG HCO3 ACT 33.1 mmol/L (22.0-26.0); BG METHEMOGLOBIN 0.3 % (0.0-1.5); BG OXYGEN SATURATION 93.3 % (92.0-98.5); BG OXYHEMOGLOBIN 92.2 % (94.0-97.0); BG PCO2 56.9 mmHg (35.0-45.0); BG PH 7.383 (7.350-7.450); BG PO2 74.3 mmHg (75.0-100.0); BG SAMPLE SITE RIGHT RADIAL; BG TOTAL HEMOGLOBIN 13.3 g/dL (12.0-18.0); BG VENT MODE NASAL CANNULA
[2018-10-18] MEDS ORDERED: IPRATROPIUM BROMIDE (0.02%) 0.5MG/2.5ML NEB HHN NR (22:09)
[2018-10-18] MEDS ORDERED: ALBUTEROL (0.083%) 2.5MG/3ML NEB HHN NR (22:09)
[2018-10-18] MEDS ORDERED: CEFTRIAXONE 1 G PREMIX 50 ML IV ONE (23:45)
[2018-10-18 23:53] LABS: CLARITY URINE TURBID (CLEAR); COLOR URINE YELLOW (YELLOW); KETONES URINE NEGATIVE (NEGATIVE); LEUKOCYTE ESTERASE URINE 3+ (NEGATIVE); NITRITE URINE POSITIVE (NEGATIVE); OCCULT BLOOD URINE 2+ (NEGATIVE); PH URINE 8.5 (4.5-8.0); PROTEIN URINE 1+ (NEGATIVE); SPECIFIC GRAVITY URINE 1.023 (1.005-1.030); UROBILINOGEN URINE 0.2 E.U./dL (0.2-1.0)
[2018-10-19 00:25] LABS: *AMPHETAMINES SCREEN URINE NEGATIVE (NEGATIVE); *BARBITURATES SCREEN URINE NEGATIVE (NEGATIVE); *BENZODIAZEPINES SCREEN URINE NEGATIVE (NEGATIVE)
[2018-10-19 00:26] LABS: *COCAINE SCREEN URINE NEGATIVE (NEGATIVE); CANNABINOID URINE SCREEN NEGATIVE (NEGATIVE); METHADONE URINE SCREEN NEGATIVE (NEGATIVE); OPIATES URINE SCREEN NEGATIVE (NEGATIVE); PHENCYCLIDINE URINE SCREEN NEGATIVE (NEGATIVE)
[2018-10-19 01:44] VITALS: BP 147/94
== END 2018-10-19 02:20 | disposition short-term general hospital (02) ==
LOC: ER 18:30 → EDBEDREQ 23:32 → EDBEDREQTM 23:32 → CANRESERV 10-19 00:09 → ENRESERV 10-19 00:09 → ER 10-19 02:20 → CANBEDREQ 10-19 03:42 → SUPCPDRO 10-19 08:38
DX: I63.9 Cerebral infarction, unspecified (principal); I67.1 Cerebral aneurysm, nonruptured; I11.0 Hypertensive heart disease with heart failure; I50.9 Heart failure, unspecified; I48.91 Unspecified atrial fibrillation; G93.49 Other encephalopathy; J44.9 Chronic obstructive pulmonary disease, unspecified; Z90.710 Acquired absence of both cervix and uterus; Z79.01 Long term (current) use of anticoagulants; Z79.82 Long term (current) use of aspirin
CPT/HCPCS: 36415; 36600; 70496; 70498; 71045; 80053; 80305; 80320; 81003; 82375; 82805; 82962; 83605; 83880; 84145; 84484; 85025; 85610; 87040; 87077; 87086; 87186; 93005; 94640; 96361; 96365; 96367; 96375; 99291; J0696; J2405; J3490; J7060; J7611; A4315; G0480